=== PATIENT | female | born 1970 | race Caucasian/White ===

== ENCOUNTER 2018-07-29 19:51 | Inpatient (IN) ==
--- NOTE | 2018-07-29 20:12 | Emergency Department Note ---
Disposition Clinical Impression: STEMI (ST elevation myocardial infarction) Disposition: Admitted As Inpatient Condition: Good General Adult HPI - General Chief complaint: ED Chest Pain Stated complaint: Chest pain Time Seen by Provider: 07/29/18 19:58 Source: patient, EMS Limitations: no limitations Nursing Notes Reviewed: Yes Vital Signs Reviewed: Yes - History of Present Illness HPI Narrative: Patient is a 48-year-old female with past medical history including diabetes mellitus type 2, presenting with chest pain that started at 1830 this evening while the patient was cooking dinner. Patient describes the pain as substernal and pressure-like that radiated into her left shoulder. She complains of associated shortness of breath and her noted she was clammy. She denies lightheadedness, nausea, vomiting. She denies history of recent surgery, travel, lower extremity swelling, hormone use, history of cancer, hemoptysis. Denies fevers or chills, cough, or any other complaints at this time. Denies family history of coronary artery disease and states she has never had this happen before. She received aspirin via EMS. States chest pain is much improved in a dull feeling at this time. Pain Scale: 4 - Related Data Home Medications Medication Instructions Recorded Confirmed Metformin HCl [Fortamet] 500 mg PO DAILY 07/29/18 07/29/18 RX: Lisinopril 2.5 mg PO HS 07/29/18 07/29/18 Allergies Allergy/AdvReac Type Severity Reaction Status Date / Time Sulfa (Sulfonamide Allergy Hives Verified 07/29/18 21:28 Antibiotics) All systems ED: reviewed and negative except as stated. Review of Systems: As Per HPI Constitutional: Denies: fever, chills ENT ED: Denies: throat pain, congestion Cardiovascular: Reports: chest pain. Denies: palpitations Respiratory: Reports: dyspnea. Denies: cough, wheezes Gastrointestinal: Denies: abdominal pain, nausea, vomiting Genitourinary: Denies: dysuria Musculoskeletal: Denies: back pain Neurological: Denies: headache, weakness Past Medical History - Past Medical History Attestation: Yes The following information was validated with the patient. Source: patient Medical history: Reports: diabetes, hyperlipidemia, hypertension Psychiatric history: Reports: no psych history - Social History Smoking Status: Former smoker Smokeless Tobacco Status: No Alcohol use: Reports: rarely Drug use: Reports: none Physical Exam - General Limitations: no limitations General appearance: alert, in no apparent distress - Head Head exam: atraumatic, normocephalic, normal inspection - Eye Eye exam: Present: normal appearance, EOMI - ENT ENT exam: normal exam, mucous membranes moist - Neck Neck exam: Present: normal inspection, full ROM, trachea midline - Chest Chest inspection: Present: normal inspection, symmetric chest wall rise - Respiratory Respiratory exam: Present: normal lung sounds bilaterally. Absent: respiratory distress, wheezes - Cardiovascular Cardiovascular exam: Present: regular rate, normal rhythm, normal heart sounds. Absent: systolic murmur, diastolic murmur - Abdominal Exam Abdominal exam: Present: soft, Non-Tender. Absent: distention - Extremities Exam Extremities exam: Present: normal inspection. Absent: tenderness, pedal edema, calf tenderness - Neurological Exam Neurological exam: Present: alert, oriented X3 - Psychiatric Psychiatric exam: Present: normal affect, normal mood - Skin Skin exam: Present: warm, dry, intact, normal color. Absent: cyanosis, diaphoresis Course Vital Signs Temperature 98 F 07/29/18 19:54 Pulse Rate 102 07/29/18 19:54 Respiratory Rate 16 07/29/18 19:54 Blood Pressure 149/89 07/29/18 19:54 O2 Sat by Pulse Oximetry 98 07/29/18 19:54 Temperature 98.3 F 07/30/18 01:09 Pulse Rate 81 07/30/18 02:32 Respiratory Rate 16 07/30/18 02:32 Blood Pressure 116/82 07/30/18 02:32 O2 Sat by Pulse Oximetry 97 07/30/18 02:32 Oxygen Delivery Oxygen Delivery Room Air Medical Decision Making - [facility] Narrative Medical decision making narrative: Dr. Reid note: Patient presents to ER bed 14. I was aware of her presenting complaint and after a short while in the ER went to see the patient. She reports chest pain while working in the kitchen without any prodromal symptoms in the last hours or days. Describes pain as parasternal an going to her shoulders and breaking out in a sweat. Over the first half an hour pain much improved. Patient describes her pain, on my evaluation, as a 1 or 2 out of 10 and much improved from onset. On patient's arrival I reviewed her initial ER EKG which was recorded to be performed at 8:12 PM. This EKG was not indicative of a diffuse acute injury pattern, I did note subtle abnormalities in leads II, III, and F aVF that on this EKG did not meet criteria for an ST elevation CT, but did get our attention and concern. Additionally there were no changes in the precordial leads nor whether any reciprocal changes. While in the room I looked down on a table and saw a 12-lead EKG had been transmitted by the medic. I was not aware of this ekg being done, or being present in the ER. I picked this EKG off the table at approximately 9:20 pm and noticed this EKG to be different and more concerning than our EKG done in the ER. EKG from the medics showed J-point changes in leads II, III, and F aVF. Initially showed J-point changes diffusely in the precordial leads specifically V3 through V6. In light of the patient's history and diffuse J-p oint changes and mild diffuse ST elevation I called the senior wind energy consultant and activated the STEMI protocol. I spoke with Dr. Stauffer at this time who felt because of the initial EKG and patient still having pain catheter lab was indicated. Elevated troponin noted. Patient's symptoms continue to improve. ER ekg #2 shows almost complete normalization of all leads. 3 ekgs in all, all 3 not alike. Brilinta and Heparin Given at the Request of Dr. Stauffer; patient was shortly after transferred to the catheterization lab in stable and improved condition without persistent pain. - Medical Records Medical records reviewed: Yes I reviewed the patient's medical records. - Lab Data Lab results reviewed: Yes I reviewed the patient's lab results. Result diagrams: 07/29/18 20:49 07/29/18 20:49 Lab Results 07/29/18 07/29/18 07/29/18 Range/Units 20:49 20:49 21:47 WBC 11.8 H (4.3-11.1) K/mcL RBC 3.92 (3.82-4.97) M/mcL Hgb 11.8 (11.5-15.4) g/dL Hct 35.2 L (35.3-44.9) % MCV 89.8 (83.0-100.0) fL MCH 30.1 (28.0-33.3) pg MCHC 33.5 (31.6-35.5) g/dL RDW 12.3 (11.5-14.5) % Plt Count 353 (140-400) K/mcL MPV 8.5 L (9.4-12.4) fL PT 11.0 (9.4-12.1) Seconds INR 1.0 Heparin Anti-Xa, Unfract 1.41 H* (0.30-0.70) IU/mL Sodium 134 L (136-145) mEq/L Potassium 3.7 (3.5-5.1) mEq/L Chloride 103 (98-107) mEq/L Carbon Dioxide 20 L (23-29) mEq/L BUN 10 (6-20) mg/dL Creatinine 0.48 L (0.60-1.20) mg/dL Est GFR ( Amer) > 60 (> 60) Est GFR (Non-Af Amer) > 60 (> 60) BUN/Creatinine Ratio 21 (6-26) Glucose 180 H (70-105) mg/dL Calculated Osmolality 282 (280-300) Calcium 9.0 (8.6-10.3) mg/dL Troponin I 0.64 H* (< 0.04) ng/mL - Radiology Data Radiology results reviewed: Yes I reviewed the patient's radiology results. Chest X-Ray 07/29/18 20:06 IMPRESSION: No acute disease. D/ / Adriana Corley Cha, MD / Adriana Corley Cha, MD Interpreting Provider: Adriana Corley Cha, MD - EKG Data EKG #1 EKG attestation: Yes I reviewed and interpreted this EKG. EKG results narrative: EKG obtained at 2011 shows sinus rhythm with heart rate 96, MA interval 156, QRS duration 92, QTC [address] changes in lead 2, 3, aVF. Unknown if new or old. No reciprocal changes noted. No diffuse injury pattern noted. Critical Care Time Critical Care Time: Yes Total Critical Care Time: 35 Attestation: ACUTE STEMI CT; Attestation Statement - Attestation Attestation: Dr. Reid note: Patient seen in conjunction with ER resident Dr. Moreno; please see her charting for complete documentation. I spent [id number] time with the patient and agree with the patient's treatment and disposition. Troponin results, and all b lood work has been reviewed. Heart Score - Score History: Slightly Suspicious EKG: Non Specific repolarisation Disturbance Age: 45-65 Risk Factors: 1-2 risk factors Troponin: Less than normal limit HEART Score Total: 3
[2018-07-29 21:04] LABS: Hematocrit 35.2 % (35.3-44.9); Hemoglobin 11.8 g/dL (11.5-15.4); Mean Corpuscular HGB Conc 33.5 g/dL (31.6-35.5); Mean Corpuscular Hemoglobin 30.1 pg (28.0-33.3); Mean Corpuscular Volume 89.8 fL (83.0-100.0); Mean Platelet Volume 8.5 fL (9.4-12.4); Platelet Count 353 K/mcL (140-400); Red Blood Count 3.92 M/mcL (3.82-4.97); Red Cell Distribution Width 12.3 % (11.5-14.5)
[2018-07-29] MEDS ORDERED: *HR* Ticagrelor 90 MG TABLET PO ONE (21:28)
[2018-07-29] MEDS ORDERED: *HR* Heparin 5,000 UNIT/ML VIAL IVP ONE (21:29)
[2018-07-29] MEDS ORDERED: *HR* Heparin 5,000 UNIT/ML VIAL IVP PRN ×2 (21:29)
[2018-07-29] MEDS ORDERED: Heparin 25,000 UNIT/250 ML D5W 25,000 UNIT/250 ML IV.SOLN IVC SCH (21:30)
[2018-07-29 21:32] LABS: Troponin I 0.64 ng/mL (< 0.04)
[2018-07-29] MEDS ORDERED: 0.9 % Sodium Chloride 1,000 ML ONE (21:43)
[2018-07-29] MEDS ORDERED: ISOVUE-370 200 ML INFUS..BTL ONE (21:43)
[2018-07-29] MEDS ORDERED: Nitroglycerin 1,000 MCG/10 ML VIAL IV ONE (21:43)
[2018-07-29] MEDS ORDERED: Heparin 1,000 UNITS/500 mL 500 ML ONE (21:43)
[2018-07-29] MEDS ORDERED: *HR* Heparin 10,000 UNIT/10 ML VIAL ONE (21:43)
[2018-07-29] MEDS ORDERED: Verapamil 5 MG/2 ML VIAL ONE (21:50)
[2018-07-29 22:02] LABS: BUN/Creatinine Ratio 21 (6-26); Blood Urea Nitrogen 10 mg/dL (6-20); Carbon Dioxide 20 mEq/L (23-29); Chloride 103 mEq/L (98-107); Glucose 180 mg/dL (70-105); Osmolality,Calculated 282 (280-300); Potassium 3.7 mEq/L (3.5-5.1); Sodium 134 mEq/L (136-145); eGFR For Non-African Americans > 60 (> 60)
--- NOTE | 2018-07-29 22:07 | Pre-Sedation Evaluation ---
Pre-sedation evaluation - Pre-sedation checklist Date of procedure: 07/29/18 Procedure: [facility] Recent Vitals: Last Vital Signs Temp 98 F 07/29/18 19:54 Pulse 106 07/29/18 22:05 Resp 16 07/29/18 22:05 BP 158/93 07/29/18 22:05 Pulse Ox 99 07/29/18 22:05 H&P (including ROS) documented in medical record: Yes Previous reaction to sedatives/anesthetics: No Dietary Status: NPO after Midnight Airway Assessment: Patient can open mouth completely, TMJ function normal ASA Classification *see protocol: CLASS IV-Severe systemic disease/constant threat to pt's life, [id number] to any of the above to indicate emergent Plan of Care: Pt appropriate candidate for procedure/moderate/conscious sedati on, Risks/benefits of procedure/sedation discussed w/ patient/family Cardiac Registry (Cardio Only) - Functional Capacity Functional Capacity: >=4 METS with symptoms - Clincal Frailty Scale Clinical Frailty Scale: Managing Well
--- NOTE | 2018-07-29 22:09 | Cardiology History & Physical ---
Date of Encounter: 07/29/18 Time of Encounter: 10:05 Assessment and Plan (1) ST elevation myocardial infarction (STEMI) of inferior wall Current Visit: Yes Status: Acute A/R/B of emergent C dw patient including 1% chance of RI//CVA/CABG/HEATHER/bleeding. Pt aware and agreeable with plan. Ef assessment will be completed. Aspirin, brilinta, and heparin given. The assessment and plan as outlined above was discussed with the patient and/or family members who expressed understanding and agreement. All questions were answered. (2) Diabetes Current Visit: Yes Status: Acute The assessment and plan as outlined above was discussed with the patient and/or family members who expressed understanding and agreement. All questions were answered. Qualifiers: Diabetes mellitus type: type 2 Diabetes mellitus intermodal customer service insulin use: without intermodal customer service use Diabetes mellitus complication status: without complication Qualified Code(s): E11.9 - Type 2 diabetes mellitus without complications History of Present Illness Chief complaint: chest pain HPI: Ms. Mccord is a 48 year old female with diabetes, no previous cardiac history presents with severe chest pressure while cooking that improved with medical therapy to mild pain in the ED. EKG shows concern for inferior current of injury and STEMI was activated. Past Med Surg Social Fam HX - Past Medical History Medical history: diabetes, hyperlipidemia, hypertension Psychiatric history: no psych history - Past Surgical History Additional surgical history: tubal breast reduction\ - Social History Smoking Status: Former smoker Smokeless Tobacco Status: No Alcohol use: rarely Drug use: none Medications and Allergies Lisinopril 2.5 mg PO HS 07/29/18 [History] Metformin HCl [Fortamet] 500 mg PO DAILY 07/29/18 [History] Allergy/AdvReac Type Severity Reaction Status Date / Time Sulfa (Sulfonamide Allergy Hives Verified 07/29/18 21:28 Antibiotics) All Systems Review: The remainder of the systems were reviewed and are negative - Constitutional Constitutional: no chills, no fever(s) - EENT Eyes: no blurred vision, no loss of vision Nose, mouth and throat: no odynophagia, no throat swelling - Cardiovascular Cardiovascular: chest pain at rest - Respiratory Respiratory: no hemoptysis, no wheezing - Gastrointestinal Gastrointestinal: no hematemesis, no hematochezia - Genitourinary Genitourinary: no hematuria, no nocturia - Musculoskeletal Musculoskeletal: no muscle cramps, no muscle weakness - Integumentary Integumentary: no rash, no unusual bruising - Neurological Neurological: no syncope, no tingling - Psychiatric Psychiatric: no hallucinations, no panic attacks - Hematological/Lymphatic Hematologic/Lymphatic: no easy bleeding, no easy bruising Physical Examination Vital Signs, Last 4 Hours Temp Pulse Resp BP Pulse Ox 07/29/18 22:05 106 16 158/93 99 07/29/18 21:44 117 162/95 98 07/29/18 21:27 103 159/98 98 07/29/18 20:25 104 16 148/83 97 07/29/18 19:54 98 F 102 16 149/89 98 General: Conversant HEENT: Atraumatic Neck: No JVD Cardiac: Reg Rate and Rhythm Lungs: Normal Breath Sounds Neuro: Alert and responsive Abdomen: Soft Skin: No rashes noted on visualized skin Musculoskeletal: No Chest Wall Tenderness Extremities: No Edema Results 07/29/18 20:49 07/29/18 20:49 Lab Results 07/29/18 07/29/18 20:49 20:49 WBC 11.8 H Hgb 11.8 Hct 35.2 L Plt Count 353 Sodium 134 L Potassium 3.7 Chloride 103 Carbon Dioxide 20 L BUN 10 Creatinine 0.48 L Glucose 180 H Calcium 9.0 Troponin I 0.64 H* - EKG Interpretation EKG results cardiology: personally reviewed, sinus rhythm (borderline inferior current of injury)
[2018-07-29] MEDS ORDERED: *HR* FentaNYL (PF) 100 MCG/2 ML VIAL ONE (22:26)
[2018-07-29] MEDS ORDERED: *HR* Midazolam HCl 2 MG/2 ML VIAL ONE (22:26)
[2018-07-29 22:32] LABS: Heparin anti-factor XA UFH 1.41 IU/mL (0.30-0.70)
[2018-07-29] MEDS ORDERED: D5% in Water 1,000 ML IVC PRN (22:44)
[2018-07-29] MEDS ORDERED: *HR* Dextrose 50 % in Water (Syg) 50 ML SYRINGE IVP PRN (22:44)
[2018-07-29] MEDS ORDERED: Dextrose Gel 15 GM/37.5 ML TUBE PO PRN ×2 (22:44)
[2018-07-29] MEDS ORDERED: *HR* HYDROcodone/Acet 5/325 mg TABLET PO PRN (22:45)
[2018-07-29] MEDS ORDERED: Acetaminophen 325 MG TABLET PO PRN (22:45)
--- NOTE | 2018-07-29 23:04 | Invasive Diagnostic Lab Proc ---
Name: Stephania Mccord Date of Study: 07/29/2018 Date: 1970 Ht: 66.1in Medical Record#: [id number] Age: 48 Wt: 169.76lb Gender: Female BSA: 1.87 Order #: [id number] BMI: 27.28 Physicians Procedure Physician: Cristobal Stauffer MD, [facility] Referring MD: Referring MD: Staff Name Position Time In RivkadeanMilagros RN Monitor 10:19 PM Bliane Noel RN Fence Erector Supervisor 10:19 PM Mona Underwood RN Fence Erector Supervisor 10:19 PM Stefan Lopez RT (R) Scrub 10:19 PM Indications Indication STEMI Procedures Performed Procedure L HRT ARTERY/VENTRICLE ANGIO Pre-Procedure Checklist Informed consent is complete signed and on chart. H&P is on chart. ID band is on and ID verified with patient. Patient NPO for procedure The procedure was described for the patient and questions were answered. Blood Pressure: 159/98 ECG is on chart. Plan of Care Patient will tolerate the procedure without complications. Adequate level of comfort will be maintained. Hemodynamics will remain stable Patient will recover from procedure without complications. Respiratory function will be maintained. Cardiac rhythm will remain stable. Patient temperature will be maintained. Patient and/or family have verbalized understanding of the procedure. Patient Education Intravenous Access Time IV Size Location DC'd Fluid/Drip Rate Units RN 10:07 PM 20g 1 1/4" Patent On Arrival Rt Arm 10:08 PM 20g 1 1/4" Patent On Arrival Rt Arm Allergies Sulfa (Sulfonamide Antibiotics) Vital Signs Time BP (mmHg) HR (bpm) O2 Sat. RR (bpm) LOC 10:08 PM 159 / 98 103 98 % 16 5 = Fully awake and oriented or at pre-proc level 10:23 PM / % 5 = Fully awake and oriented or at pre-proc level 10:23 PM / % 4 = Oriented but drowsy 10:25 PM 141 / 103 118 99 % 20 10:30 PM 139 / 88 131 94 % 17 10:35 PM 129 / 84 118 94 % 25 10:40 PM 125 / 81 118 94 % 28 Procedural Medications Time Medication Dose Units Method Given By 10:22 PM Oxygen 2 L/min nasal cannula Blaine Noel RN 10:27 PM Versed 2 mg Intravenous Blaine Noel RN 10:27 PM Fentanyl 50 mcg Intravenous Blaine Noel RN 10:27 PM Lidocaine 2% 0.5 ml Subcutaneous Cristobal Stauffer MD, [facility] 10:29 PM Heparin 2000 units Nitroglycerin 200 mcg Verapamil 2.5 mg Intraarterial Cristobal Stauffer MD, [facility] ASA Classification: CLASS IV- Severe systemic that is constant threat to patient's life Myles Score Preprocedure Postprocedure Activity 2- Moves 4 extremities sustained head lift Activity 2- Moves 4 extremities sustained head lift Circulation 2- SBP +/= 20 points of pre-anesthetic level Circulation 2- SBP +/= 20 points of pre-anesthetic level Consciousness 2- Awake and alert oriented x 3 Consciousness 2- Awake and alert oriented x 3 O2 Saturation 2- Able to maintain O2 satruation of 92% on room air O2 Saturation 2- Able to maintain O2 satruation of 92% on room air Respiratory 2- Able to deep breathe and cough well Respiratory 2- Able to deep breathe and cough well Total Score 10 Total Score 10 Contrast Agent: Isovue Diagnostic Contrast: 68 ml Total Contrast: 68 ml Fluoro Dose: 16 mGy Procedure Log Time Note Enter By 10:19 PM [facility] PM Milagros Holloway RN Position: Monitor Time in: 22:19 tsmmers 10:19 PM Blaine Noel RN Position: Fence Erector Supervisor Time in: 22:19 [facility] 10:19 PM Mona Underwood RN Position: Fence Erector Supervisor Time in: 22:19 tsmmers 10:19 PM Stefan Lopez (R) Position: Scrub [facility]: [facility] PM Patient charges- Angio tray pack, Navilyst 3mm J, Pulse Oximetry and ACIST tubing and transducer tsoummers 10:22 PM ASA Class CLASS IV- Severe systemic that is constant threat to patient's life tsoummers 10:22 PM Meet and greet [facility] PM Sign in performed according to hospital policy. Informed consent was obtained. tsoummers 10:22 PM Procedure start 22:22 tsoummers 10:22 PM Hair removed from procedure site in procedure lab using clippers. Right wrist and Right groin prepped with Chloraprep by Stefan Lopez (R), then patient was draped. Skin intact. tsmmers 10: PM Time: : Oxygen on at 2 L/min per nasal cannula by Blaine Noel RN [facility] : PM Time: : Patient comfortable and pain free: Yes tsoummers 10: PM Time: :LOC: 5 = Fully awake and oriented or at pre-proc level tsoummers 10: PM Critical cardiac patient with acute WA was brought emergently to the cardiac technical laboratory asst for immediate coronary angiography and intervention if clinically indicated. tsoummers 10: PM CathStat 10: PM Vitals capture started with the following parameters, Patient=Adult, Interval=5 min, Initial Wgkglism=661 mmHg, Deflation Rate=5 mmHg, Cuff placed on Right Arm 10: PM Time out was performed according to hospital policy. Conscious sedation and anesthesia was achieved (see medication log with in this report above) tsoummers 10: PM AP=866 bpm, KSQQ=030/103 mmhg, SpO2=99.0 %, Resp=20 B/min 10: PM Time: : Versed 2 mg Intravenous Given by Blaine Noel RN [facility] 10: PM Time: : Fentanyl 50 mcg Intravenous [facility]: PM Time: : 0.5 ml Lidocaine 2% to right radial Subcutaneous Given by Cristobal Stauffer MD, [facility] 10: PM Recorded ECG: JG=673 Condition=Condition 1 10:28 PM Pressure channel 1 zero failed. 10:28 PM Pressure channel 1 zero failed. 10:28 PM Pressure channel 1 zeroed. 10: PM Access obtained by percutaneous puncture. 6Fr 10cm Terumo Glidesheath sheath placed in right Radial artery. [id number] tsoummers 10: PM Time: :29 Patient given 2,000 units Heparin, 200 mcg Nitroglycerin, and 2.5 mg Verapamil Intraarterial by Cristobal Stauffer MD, [facility]. This is given to reduce risk of vessel spasm and thrombosis. tsoummers 10:29 PM 0.035 260cm Navilyst 3mmJ wire [id number] tsmmers 10:29 PM 5Fr TIG catheter inserted over the wire [facility] tsmmers 10: PM wire removed tsoummers 10:30 PM EK=387 bpm, ARIM=946/88 mmhg, SpO2=94.0 %, Resp=17 B/min, EtCO2=27 mmHg 10:31 PM Recorded Pressure: Ao, HD=718, Condition=Condition 1 (Aorta) Ao 114/87/100 10:31 PM Coronary Dominance: right tsoummers 10:33 PM Recorded Pressure: LV, ME=323, Condition=Condition 1 (Left Ventricle) LV 133/-5/10 10:34 PM Catheter crossed the aortic valve and was selectively placed in the left ventricle. Pressures recorded on pullback for left heart catheterization. tsoummers 10:34 PM Bolus angiogram of left Ventricle complete: 10 ml/sec for a total of 30 mls tsoummers 10:34 PM Recorded Pressure: LV, DQ=730, Condition=Condition 1 (Left Ventricle) LV 139/-5/-2 10:34 PM Recorded Pressure: LV, Ao, QE=516, Condition=Condition 1 (Left Ventricle) LV 143/-6/1, (Aorta) Ao 82/52/68 10:35 PM Catheter removed tsmmers 10:35 PM XY=955 bpm, MPPF=991/84 mmhg, SpO2=94.0 %, Resp=25 B/min, EtCO2=30 mmHg 10:36 PM 5Fr RBL 3.5 Convey guide catheter was used to cannulate the PCI vessel successfully. reused? No tsoummers 10:37 PM LCA angiography performed in multiple views. tsoummers 10:37 PM Recorded Pressure: Ao, NE=463, Condition=Condition 1 (Aorta) Ao 112/77/94 10:38 PM Time: 22:23 Patient comfortable and pain free: Yes tsoummers 10:38 PM Time: 22:23LOC: 4 = Oriented but drowsy tsoummers 10:39 PM Lesion found in Mid LAD. Pre Stenosis: 40 Pre WALTER Flow: tsoummers 10:39 PM Guide catheter removed intact. tsoummers 10:40 PM Procedure completed at 22:40 07/29/2018 tsmmers 10:40 PM Did you address WALTER flow and Dominance? Yes tsoummers 10:40 PM ID=545 bpm, PJMI=187/81 mmhg, SpO2=94.0 %, Resp=28 B/min 10:44 PM Sign out completed: Radiation Dose 120.84 mGy, 16.1 Gy/cm2 Fluoro Time: 3.6 Isovue 370 - 200ml contrast 68 ml given by Cristobal Stauffer MD, [facility]. Complications: None. The patient was discharged out of the technical laboratory asst in stable condition. Sedation minutes 16. Cardiac Rehab Consult needed: No. Confirmed administered medications: Yes tsoummers 10:44 PM Isovue 370 - 200ml,1 Bottle(s) used. tsoummers 10:44 PM Arterial sheath pulled, Vasc Band closure device used and was Successful 11 S/N. tsoummers 10:44 PM 11 ml air in Vasc Band. tsoummers 10:44 PM Post ECG NSR tsoummers 10:44 PM Post Blood Pressure 125/81 tsoummers 10:44 PM 22:44 Post Pulses Rt Radial 1+ tsoummers 10:44 PM Information taught Cardiac Cath and Vasc Band tsoummers 10:44 PM Education needs Plan of Care, Procedure, and Responsibilities of Patient in Care tsoummers 10:44 PM Learning barriers :None tsoummers 10:44 PM Education Methods Verbal tsoummers 10:44 PM Education evaluation Able to repeat information tsoummers 10:45 PM Site status No bleeding/hematoma - Rt Wrist as reported by Stefan Lopez RT (R) at 22:44 tsoummers 10:45 PM Plavix, Effient or Brilinta given Yes ELECTRICAL TIMING DEVICE CALIBRATOR tsoummers 10:45 PM Delay to floor Bed availability tsoummers 10:45 PM Family placed in consult room. tsoummers 10:49 PM Mid/Distal Left Anterior Descending Coronary Artery and diagonal branches with 40% stenosis. If graft is supplying this area, 0 % stenosis tsoummers 10:51 PM Report given to Tigist KRAUS Pt taken to 2NE Room #27. 22:51 tsoummers 10:51 PM Patient out of room: 22:51 tsoummers Complications Complication None Hemodynamics Pressures Site Systolic/A Wave Diastolic/V Wave Mean AO 114 87 100 LV 133 -5 10 LV 139 -5 -2 LV 143 -6 1 AO 82 52 68 AO 112 77 94 Post Procedure Information Blood Pressure: 125/81 mmHg Rhythm: NSR Post procedural instructions were given Closure Device Time Device Success/Fail 07/29/2018 10:46:00 PM Mechanical Compression Successful Site Checks Time Location Status Staff Sheath In? Note 10:44 PM Rt Wrist No bleeding/hematoma Stefan Lopez RT (R) Pulses Time Site Pre-Procedure Post-Procedure Note 10:44:00 PM Rt Radial 1+ Updated by Milagros Holloway RN on 07/29/2018 10:52:13 PM electronically signed on 07/29/2018 10:53:48 PM with status of Final
[2018-07-30] MEDS: *HR* Enoxaparin 40 MG/0.4 ML SYRINGE SQ SCH (05:29)
[2018-07-30 06:06] LABS: Basophils % 0.4 %; Eosinophils # 0.1 K/mcL (0.0-0.6); Eosinophils % 1.3 %; Hematocrit 35.3 % (35.3-44.9); Hemoglobin 11.8 g/dL (11.5-15.4); Immature Granulocytes % 0.3 % (0-4); Lymphocytes # 2.2 K/mcL (0.6-4.6); Lymphocytes % 19.8 %; Mean Corpuscular HGB Conc 33.4 g/dL (31.6-35.5); Mean Corpuscular Hemoglobin 29.7 pg (28.0-33.3); Mean Corpuscular Volume 88.9 fL (83.0-100.0); Mean Platelet Volume 8.7 fL (9.4-12.4); Monocytes # 0.5 K/mcL (0.0-1.3); Monocytes % 4.8 %; Platelet Count 359 K/mcL (140-400); Red Blood Count 3.97 M/mcL (3.82-4.97); Red Cell Distribution Width 12.3 % (11.5-14.5); Segmented Neutrophils % 73.4 %
[2018-07-30 06:21] LABS: BUN/Creatinine Ratio 18 (6-26); Blood Urea Nitrogen 7 mg/dL (6-20); Carbon Dioxide 21 mEq/L (23-29); Chloride 103 mEq/L (98-107); Glucose 197 mg/dL (70-105); Osmolality,Calculated 285 (280-300); Potassium 3.9 mEq/L (3.5-5.1); Sodium 136 mEq/L (136-145); eGFR For Non-African Americans > 60 (> 60)
[2018-07-30] MEDS: Aspirin 81 MG TAB.CHEW PO SCH (07:50)
[2018-07-30] MEDS: Insulin LISPRO 300 UNITS/3 ML VIAL SQ SCH ×3 (07:54→18:24)
--- NOTE | 2018-07-30 08:18 | Invasive Diagnostic Lab Proc ---
Name: Stephania Mccord Date of Study: 07/29/2018 Date: 1970 Ht: 66.1in Medical Record#: [id number] Age: 48 Wt: 169.76lb Gender: Female BSA: 1.87 Order #: [id number] BMI: 27.28 Physicians Procedure Physician: Cristobal Stauffer MD, [facility] Referring MD: Referring MD: Staff Name Position Time In RivkadeanMilagros RN Monitor 10:19 PM Blaine Noel RN Industrial Psychology Professor 10:19 PM Mona Underwood RN Industrial Psychology Professor 10:19 PM Stefan Lopez RT (R) Scrub 10:19 PM Indications Indication STEMI Procedures Performed Procedure L HRT ARTERY/VENTRICLE ANGIO Pre-Procedure Checklist Informed consent is complete signed and on chart. H&P is on chart. ID band is on and ID verified with patient. Patient NPO for procedure The procedure was described for the patient and questions were answered. Blood Pressure: 159/98 ECG is on chart. Plan of Care Patient will tolerate the procedure without complications. Adequate level of comfort will be maintained. Hemodynamics will remain stable Patient will recover from procedure without complications. Respiratory function will be maintained. Cardiac rhythm will remain stable. Patient temperature will be maintained. Patient and/or family have verbalized understanding of the procedure. Patient Education Intravenous Access Time IV Size Location DC'd Fluid/Drip Rate Units RN 10:07 PM 20g 1 1/4" Patent On Arrival Rt Arm 10:08 PM 20g 1 1/4" Patent On Arrival Rt Arm Allergies Sulfa (Sulfonamide Antibiotics) Vital Signs Time BP (mmHg) HR (bpm) O2 Sat. RR (bpm) LOC 10:08 PM 159 / 98 103 98 % 16 5 = Fully awake and oriented or at pre-proc level 10:23 PM / % 5 = Fully awake and oriented or at pre-proc level 10:23 PM / % 4 = Oriented but drowsy 10:25 PM 141 / 103 118 99 % 20 10:30 PM 139 / 88 131 94 % 17 10:35 PM 129 / 84 118 94 % 25 10:40 PM 125 / 81 118 94 % 28 Procedural Medications Time Medication Dose Units Method Given By 10:22 PM Oxygen 2 L/min nasal cannula Blaine Noel RN 10:27 PM Versed 2 mg Intravenous Blaine Noel RN 10:27 PM Fentanyl 50 mcg Intravenous Blaine Noel RN 10:27 PM Lidocaine 2% 0.5 ml Subcutaneous Cristobal Stauffer MD, [facility] 10:29 PM Heparin 2000 units Nitroglycerin 200 mcg Verapamil 2.5 mg Intraarterial Cristobal Stauffer MD, [facility] ASA Classification: CLASS IV- Severe systemic that is constant threat to patient's life Myles Score Preprocedure Postprocedure Activity 2- Moves 4 extremities sustained head lift Activity 2- Moves 4 extremities sustained head lift Circulation 2- SBP +/= 20 points of pre-anesthetic level Circulation 2- SBP +/= 20 points of pre-anesthetic level Consciousness 2- Awake and alert oriented x 3 Consciousness 2- Awake and alert oriented x 3 O2 Saturation 2- Able to maintain O2 satruation of 92% on room air O2 Saturation 2- Able to maintain O2 satruation of 92% on room air Respiratory 2- Able to deep breathe and cough well Respiratory 2- Able to deep breathe and cough well Total Score 10 Total Score 10 Contrast Agent: Isovue Diagnostic Contrast: 68 ml Total Contrast: 68 ml Fluoro Dose: 16 mGy Procedure Log Time Note Enter By 10:19 PM 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 to 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 lab instructor 2 [facility] 10:19 PM Milagros Holloway RN Position: Monitor Time in: 22:19 tsmmers 10:19 PM Blaine Noel RN Position: Industrial Psychology Professor Time in: 22:19 [facility] 10:19 PM Mona Underwood RN Position: Industrial Psychology Professor Time in: 22:19 [facility]ers 10:19 PM Stefan Lopez (R) Position: Scrub [facility]: [facility] PM Patient charges- Angio tray pack, Navilyst 3mm J, Pulse Oximetry and ACIST tubing and transducer tsoummers 10:22 PM ASA Class CLASS IV- Severe systemic that is constant threat to patient's life tsoummers 10:22 PM Meet and greet [facility] 10:22 PM Sign in performed according to hospital policy. Informed consent was obtained. tsoummers 10:22 PM Procedure start 22:22 tsoummers 10:22 PM Hair removed from procedure site in procedure lab using clippers. Right wrist and Right groin prepped with Chloraprep by Stefan Lopez (R), then patient was draped. Skin intact. tsmmers 10: PM Time: : Oxygen on at 2 L/min per nasal cannula by Blaine Noel RN [facility] : PM Time: : Patient comfortable and pain free: Yes tsoummers 10: PM Time: :LOC: 5 = Fully awake and oriented or at pre-proc level tsoummers 10: PM Critical cardiac patient with acute IL was brought emergently to the cardiac rn labor and delivery for immediate coronary angiography and intervention if clinically indicated. tsoummers 10: PM CathStat 10: PM Vitals capture started with the following parameters, Patient=Adult, Interval=5 min, Initial Qiczmolb=978 mmHg, Deflation Rate=5 mmHg, Cuff placed on Right Arm 10: PM Time out was performed according to hospital policy. Conscious sedation and anesthesia was achieved (see medication log with in this report above) tsoummers 10: PM FP=724 bpm, WCNT=458/103 mmhg, SpO2=99.0 %, Resp=20 B/min 10: PM Time: : Versed 2 mg Intravenous Given by Blaine Noel RN [facility] 10: PM Time: : Fentanyl 50 mcg Intravenous [facility]: PM Time: : 0.5 ml Lidocaine 2% to right radial Subcutaneous Given by Cristobal Stauffer MD, [facility] 10: PM Recorded ECG: WC=501 Condition=Condition 1 10:28 PM Pressure channel 1 zero failed. 10:28 PM Pressure channel 1 zero failed. 10:28 PM Pressure channel 1 zeroed. 10: PM Access obtained by percutaneous puncture. 6Fr 10cm Terumo Glidesheath sheath placed in right Radial artery. [id number] tsoummers 10: PM Time: :29 Patient given 2,000 units Heparin, 200 mcg Nitroglycerin, and 2.5 mg Verapamil Intraarterial by Cristobal Stauffer MD, [facility]. This is given to reduce risk of vessel spasm and thrombosis. tsoummers 10:29 PM 0.035 260cm Navilyst 3mmJ wire [id number] tsmmers 10:29 PM 5Fr TIG catheter inserted over the wire [facility] tsmmers 10: PM wire removed tsoummers 10:30 PM SP=009 bpm, EKPS=077/88 mmhg, SpO2=94.0 %, Resp=17 B/min, EtCO2=27 mmHg 10:31 PM Recorded Pressure: Ao, NT=989, Condition=Condition 1 (Aorta) Ao 114/87/100 10:31 PM RCA angiography performed in multiple views. tsoummers 10:31 PM Coronary Dominance: right tsoummers 10:33 PM Recorded Pressure: LV, OB=408, Condition=Condition 1 (Left Ventricle) LV 133/-5/10 10:34 PM Catheter crossed the aortic valve and was selectively placed in the left ventricle. Pressures recorded on pullback for left heart catheterization. tsoummers 10:34 PM Bolus angiogram of left Ventricle complete: 10 ml/sec for a total of 30 mls tsoummers 10:34 PM Recorded Pressure: LV, NC=307, Condition=Condition 1 (Left Ventricle) LV 139/-5/-2 10:34 PM Recorded Pressure: LV, Ao, RU=506, Condition=Condition 1 (Left Ventricle) LV 143/-6/1, (Aorta) Ao 82/52/68 10:35 PM Catheter removed tsoummers 10:35 PM VK=397 bpm, AXRJ=157/84 mmhg, SpO2=94.0 %, Resp=25 B/min, EtCO2=30 mmHg 10:36 PM 5Fr RBL 3.5 Convey guide catheter was used to cannulate the PCI vessel successfully. reused? No tsoummers 10:37 PM LCA angiography performed in multiple views. tsoummers 10:37 PM Recorded Pressure: Ao, OK=855, Condition=Condition 1 (Aorta) Ao 112/77/94 10:38 PM Time: 22:23 Patient comfortable and pain free: Yes tsoummers 10:38 PM Time: 22:23LOC: 4 = Oriented but drowsy tsoummers 10:39 PM Lesion found in Mid LAD. Pre Stenosis: 40 Pre WALTER Flow: tsoummers 10:39 PM Guide catheter removed intact. tsoummers 10:40 PM Procedure completed at 22:40 07/29/2018 tsmmers 10:40 PM Did you address WALTER flow and Dominance? Yes tsoummers 10:40 PM HT=125 bpm, DVCR=277/81 mmhg, SpO2=94.0 %, Resp=28 B/min 10:44 PM Sign out completed: Radiation Dose 120.84 mGy, 16.1 Gy/cm2 Fluoro Time: 3.6 Isovue 370 - 200ml contrast 68 ml given by Cristobal Stauffer MD, [facility]. Complications: None. The patient was discharged out of the rn labor and delivery in stable condition. Sedation minutes 16. Cardiac Rehab Consult needed: No. Confirmed administered medications: Yes tsoummers 10:44 PM Isovue 370 - 200ml,1 Bottle(s) used. tsoummers 10:44 PM Arterial sheath pulled, Vasc Band closure device used and was Successful 11 S/N. tsoummers 10:44 PM 11 ml air in Vasc Band. tsoummers 10:44 PM Post ECG NSR tsoummers 10:44 PM Post Blood Pressure 125/81 tsoummers 10:44 PM 22:44 Post Pulses Rt Radial 1+ tsoummers 10:44 PM Information taught Cardiac Cath and Vasc Band tsoummers 10:44 PM Education needs Plan of Care, Procedure, and Responsibilities of Patient in Care tsoummers 10:44 PM Learning barriers :None tsoummers 10:44 PM Education Methods Verbal tsoummers 10:44 PM Education evaluation Able to repeat information tsoummers 10:45 PM Site status No bleeding/hematoma - Rt Wrist as reported by Stefan Lopez RT (R) at 22:44 tsoummers 10:45 PM Plavix, Effient or Brilinta given Yes ORIENTATION & MOBILITY SPECIALIST tsoummers 10:45 PM Delay to floor Bed availability tsoummers 10:45 PM Family placed in consult room. tsoummers 10:49 PM Mid/Distal Left Anterior Descending Coronary Artery and diagonal branches with 40% stenosis. If graft is supplying this area, 0 % stenosis tsoummers 10:51 PM Report given to Tigist KRAUS Pt taken to 2NE Room #27. 22:51 tsoummers 10:51 PM Patient out of room: 22:51 tsoummers Complications Complication None Hemodynamics Pressures Site Systolic/A Wave Diastolic/V Wave Mean AO 114 87 100 LV 133 -5 10 LV 139 -5 -2 LV 143 -6 1 AO 82 52 68 AO 112 77 94 Post Procedure Information Blood Pressure: 125/81 mmHg Rhythm: NSR Post procedural instructions were given Closure Device Time Device Success/Fail 07/29/2018 10:46:00 PM Mechanical Compression Successful Site Checks Time Location Status Staff Sheath In? Note 10:44 PM Rt Wrist No bleeding/hematoma Stfean Lopez RT (R) Pulses Time Site Pre-Procedure Post-Procedure Note 10:44:00 PM Rt Radial 1+ Updated by Milagros Holloway RN on 07/30/2018 8:06:42 AM electronically signed on 07/30/2018 8:07:02 AM with status of Final
[2018-07-30] MEDS: Ondansetron 4 MG/2 ML VIAL IVP PRN ×2 (09:13→18:24)
[2018-07-30] MEDS ORDERED: Perflutren Lipid Microsphere 1.3 ML in 0.9 % Sodium Chloride 8.7 ML IVP ONE (11:11)
--- NOTE | 2018-07-30 13:00 | Cardiology Progress Note ---
Date of Encounter: 07/30/18 Time of Encounter: 12:57 Assessment and Plan (1) NICM (nonischemic cardiomyopathy) Current Visit: Yes Status: Acute Admission ECG 07/29 concerning for STEMI. 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 LHC revealed takotsubo CMP. There is mild 1V CAD(40% mLAD). EF 40% TTE LVEF 45%. LV segmental wall motion abnormalities. Mild LVDD. There is no LV thrombus. Definity echo contrast was used. Normal RV structure and function. Mild MR. Mild TR. No phtn. Pt is euvolemic on exam. Recommend Na and fluid restriction, daily weights. Pt was started on Lopressor 25mg [id number] on admission. Transitioned to Toprol XL 50mg daily today. Continue low dose ACEi--Lisinopril 2.5mg daily. Plan to repeat TTE in 3 months to re-evaluate EF. Plan for d/c home tomorrow if remains stable. (2) ST elevation myocardial infarction (STEMI) of inferior wall Current Visit: Yes Status: Ruled-out Ruled out, as above. Troponin 0.64. Mild 1V CAD on LHC (40% mLAD). NIMP EF 45% on TTE. Right radial access site healing well. No bleeding or hematoma. Mild ecchymosis. Restrictions discussed. Continue ASA, Statin, BB. Discussed with Dr. Stauffer. Given troponin elevation, recommend DAPT (ASA and Plavix) x 1 month. Discussion w patient/family: The assessment and plan as outlined above was discussed with the patient and/or family members who expressed understanding and agreement. All questions were answered. Thank you for involving us in the care of your patient. Please call with any questions. I will discuss all the above with Dr. Gannon and make changes as necessary. Subjective Principal diagnosis: CMP Interval history: No acute complaints. Denies chest pain or dyspnea. Objective Vital Signs, Last 4 Hours Temp Pulse Resp BP 07/30/18 11:51 98.5 F 87 14 121/81 Vital Signs Temp Pulse Resp BP Pulse Ox 07/30/18 11:51 98.5 F 87 14 121/81 07/30/18 07:50 98.1 F 92 16 120/86 96 07/30/18 04:34 98.1 F 94 15 153/94 98 07/30/18 03:30 87 16 104/73 96 04/19/19 02:32 81 16 116/82 97 07/30/18 01:30 81 16 123/92 97 07/30/18 01:09 98.3 F 84 16 127/85 97 07/30/18 00:32 98.3 F 87 16 125/80 97 07/30/18 00:24 98.2 F 85 15 125/87 96 07/30/18 00:01 98.4 F 91 16 126/97 97 07/29/18 23:46 98.3 F 93 15 129/79 97 07/29/18 23:33 98.1 F 100 17 127/80 96 07/29/18 23:05 98.4 F 105 17 129/85 95 07/29/18 22:14 18 138/93 07/29/18 22:05 106 16 158/93 99 07/29/18 21:44 117 162/95 98 07/29/18 21:27 103 159/98 98 07/29/18 20:25 104 16 148/83 97 07/29/18 19:54 98 F 102 16 149/89 98 Intake and Output 07/29/18 07/30/18 07/30/18 23:59 07:59 15:59 Intake Total 0 / 0 100 / 100 240 / 240 Output Total 700 / 700 150 / 150 Balance 0 / 0 -600 / -600 90 / 90 Intake: Oral 0 / 0 100 / 100 240 / 240 Output: Urine 700 / 700 150 / 150 Other: Meal Breakfast Percent of Meal Consumed 50% Stool Size Moderate Stool Consistency formed Stool Characteristics Normal for Patient # Voids 1 # Bowel Movements 1 Weight 79.4 kg 79.4 kg Blood Glucose* 168 167 176 Patient Weight 07/30/18 23:59 Weight 79.4 kg General: Conversant, No Apparent Distress HEENT: Atraumatic, Normocephaly, Mucus Membranes Moist Neck: No JVD, Normal carotid pulses Cardiac: Reg Rate and Rhythm, Normal S1 and S2, No Murmur Lungs: Normal Breath Sounds Neuro: Alert and responsive, No focal deficits noted Abdomen: Soft, Non-Tender Skin: Other (right radial access site healing well. No bleeding or hematoma. Mild ecchymosis.) Musculoskeletal: No Chest Wall Tenderness Extremities: No Clubbing, No Cyanosis, No Edema, Normal Pulses Results 07/30/18 05:29 07/30/18 05:29 Lab Results 07/29/18 07/29/18 07/29/18 20:49 20:49 21:47 WBC 11.8 H Hgb 11.8 Hct 35.2 L Plt Count 353 INR 1.0 Sodium 134 L Potassium 3.7 Chloride 103 Carbon Dioxide 20 L BUN 10 Creatinine 0.48 L Glucose 180 H Calcium 9.0 Troponin I 0.64 H* 07/30/18 07/30/18 05:29 05:29 WBC 10.8 Hgb 11.8 Hct 35.3 Plt Count 359 INR Sodium 136 Potassium 3.9 Chloride 103 Carbon Dioxide 21 L BUN 7 Creatinine 0.40 L Glucose 197 H Calcium 9.0 Troponin I Short CBC 07/30/18 07/29/18 Range/Units 05:29 20:49 WBC 10.8 11.8 H (4.3-11.1) K/mcL Hgb 11.8 11.8 (11.5-15.4) g/dL Hct 35.3 35.2 L (35.3-44.9) % Plt Count 359 353 (140-400) K/mcL Neutrophils # 8.0 (1.6-8.9) K/mcL BMP 07/30/18 07/29/18 Range/Units 05:29 20:49 Sodium 136 134 L (136-145) mEq/L Potassium 3.9 3.7 (3.5-5.1) mEq/L Chloride 103 103 (98-107) mEq/L Carbon Dioxide 21 L 20 L (23-29) mEq/L BUN 7 10 (6-20) mg/dL Creatinine 0.40 L 0.48 L (0.60-1.20) mg/dL Glucose 197 H 180 H (70-105) mg/dL Calcium 9.0 9.0 (8.6-10.3) mg/dL Cardiac Enzymes 07/29/18 Range/Units 20:49 Troponin I 0.64 H* (< 0.04) ng/mL Impressions Chest X-Ray 07/29/18 20:06 IMPRESSION: No acute disease. D/ / Adriana Corley Cha, MD / Adriana Corley Cha, MD Interpreting Provider: Adriana Corley Cha, MD Echocardiogram 07/30/18 10:30 Impressions: LVEF 45%. LV segmental wall motion abnormalities diagrammed below. Mild left ventricular diastolic dysfunction. There is no LV thrombus. Definity echo contrast was used. Normal right ventricular structure and function. Mild mitral regurgitation. Mild tricuspid regurgitation. No pulmonary hypertension. Left Ventricular Wall Motion: Rest Echo Findings The apex, apical inferior, apical anterior, apical septal, apical lateral and mid anterior septal jimenez were hypokinetic. The mid inferior lateral wall was not visualized. All other wall segments showed normal motion. Findings: Study Quality * Technically adequate exam. ECG Findings * Normal sinus rhythm. Left Ventricle * LVEF 45%. * Mild left ventricular diastolic dysfunction. * There is no LV thrombus. * Definity echo contrast was used. Right Ventricle * Normal right ventricular structure and function. Left Atrium * Normal left atrial size. Right Atrium * Normal right atrial size. Aortic Valve * No aortic regurgitation. * Trileaflet aortic valve. * No aortic stenosis. Mitral Valve * Mild mitral regurgitation. * Normal mitral valve structure. * No mitral stenosis. Tricuspid Valve * Normal tricuspid valve structure. * Mild tricuspid regurgitation. Pulmonic Valve * Pulmonic valve is not well visualized. * No pulmonic stenosis. * No pulmonic regurgitation. Pulmonary Artery * Pulmonary artery not well visualized. Aorta * Normally sized aortic root. Pericardium * There is no pericardial effusion present. Interatrial Septum * No evidence of PFO by color Doppler. IVC * The IVC is not well evaluated. Active Medications Acetaminophen (Tylenol) 650 mg PO Q6HR PRN PRN Reason: Mild Pain Stop: 01/28/19 22:46 Hydrocodone Bitart/Acetaminophen ([place] 5-325 Mg) 1 tab PO Q4HR PRN PRN Reason: Moderate Pain Stop: 01/28/19 22:46 Last Admin: 07/30/18 07:50 Dose: 1 tab Aspirin (Aspirin) 81 mg PO DAILY STEFANIE Stop: 01/29/19 09:01 Last Admin: 07/30/18 07:50 Dose: 81 mg Atorvastatin Calcium (Lipitor) 40 mg PO HS STEFANIE Stop: 01/29/19 21:01 Dextrose/Water (Dextrose 50% (Syg)) 25 ml IVP AD PRN PRN Reason: Hypoglycemia Stop: 01/28/19 22:45 Diphenhydramine HCl (Benadryl) 25 mg PO HS PRN PRN Reason: Insomnia Stop: 01/28/19 22:46 Enoxaparin Sodium (Lovenox) 40 mg SQ 0600 STEFANIE; Protocol Stop: 01/29/19 06:01 Last Admin: 07/30/18 05:29 Dose: 40 mg Glucagon (Glucagen) 1 mg IM ONCE PRN PRN Reason: Hypoglycemia Stop: 01/28/19 22:45 Glucose (Gluctose) 15 gm PO ONCE PRN PRN Reason: Hypoglycemia Stop: 01/28/19 22:45 Glucose (Gluctose) 30 gm PO ONCE PRN PRN Reason: Hypoglycemia Stop: 01/28/19 22:45 Dextrose (Dextrose 5%) 1,000 mls @ 100 mls/hr IVC .Q10H PRN PRN Reason: HYPOGLYCEMIA Stop: 01/28/19 22:45 Insulin Human Lispro (Humalog) 0 units SQ HS STEFANIE; Protocol Stop: 01/29/19 21:01 Insulin Human Lispro (Humalog) 0 units SQ TIDAC [facility]; Protocol Stop: 01/29/19 07:31 Last Admin: 07/30/18 07:54 Dose: Not Given Lisinopril (Zestril) 2.5 mg PO DAILY [facility]; Protocol Stop: 01/29/19 10:31 Last Admin: 07/30/18 11:42 Dose: 2.5 mg Metoprolol Succinate (Toprol Xl) 50 mg PO DAILY STEFANIE Stop: 01/30/19 09:01 Ondansetron HCl (Zofran) 4 mg IVP Q8HR PRN PRN Reason: Nausea And Vomiting Stop: 01/28/19 22:13 Last Admin: 07/30/18 09:13 Dose: 4 mg - Imaging and Cardiology Echo: report reviewed Cardiac cath: report reviewed - EKG Interpretation EKG results cardiology: other (12 hr tele AVG HR 85, SR. No significant pauses or arrhythmias noted.) Consult Discharge Plan - Plan Referrals: Grover Zamorano, HOME ADVISOR [Primary Care Provider] -
[2018-07-30] MEDS ORDERED: Insulin LISPRO 300 UNITS/3 ML VIAL SQ SCH (21:00)
[2018-07-31] MEDS: *HR* Enoxaparin 40 MG/0.4 ML SYRINGE SQ SCH (05:44)
[2018-07-31 07:34] VITALS: BP 103/72
[2018-07-31] MEDS: Aspirin 81 MG TAB.CHEW PO SCH (08:01)
[2018-07-31] MEDS: Insulin LISPRO 300 UNITS/3 ML VIAL SQ SCH (08:02)
--- NOTE | 2018-07-31 08:22 | Cardiology Progress Note ---
Date of Encounter: 07/31/18 Time of Encounter: 08:45 Assessment and Plan (1) NICM (nonischemic cardiomyopathy) Current Visit: Yes Status: Acute Acceptable for discharge Admission ECG 07/29 concerning for STEMI with not quite anatomical ST elevation but with ongoing chest pain. Taken emergently to laborer [place]. LHC revealed takotsubo CMP. There is mild 1V CAD(40% mLAD). EF 40% TTE LVEF 45%. LV segmental wall motion abnormalities. Mild LVDD. There is no LV thrombus. Definity echo contrast was used. Normal RV structure and function. Mild MR. Mild TR. No phtn. Pt is euvolemic on exam. Recommend Na and fluid restriction, daily weights. Pt was started on Lopressor 25mg M5ftapk on admission. Transitioned to Toprol XL 50mg daily today. Continue low dose ACEi--Lisinopril 2.5mg daily. Plan to repeat TTE in 3 months to re-evaluate EF. Plan for d/c home tomorrow if remains stable. (2) ST elevation myocardial infarction (STEMI) of inferior wall Current Visit: Yes Status: Ruled-out Ruled out, as above. Troponin 0.64. Mild 1V CAD on LHC (40% mLAD). NIMP EF 45% on TTE. Right radial access site healing well. No bleeding or hematoma. Mild ecchymosis. Restrictions discussed. Continue ASA, Statin, BB. Discussed with Dr. Stauffer. Given troponin elevation, recommend DAPT (ASA and Plavix) x 1 month. (3) Diabetes Current Visit: Yes Status: Acute The assessment and plan as outlined above was discussed with the patient and/or family members who expressed understanding and agreement. All questions were answered. Qualifiers: Diabetes mellitus type: type 2 Diabetes mellitus extermination supervisor insulin use: without extermination supervisor use Diabetes mellitus complication status: without complication Qualified Code(s): E11.9 - Type 2 diabetes mellitus without complications Discussion w patient/family: The assessment and plan as outlined above was discussed with the patient and/or family members who expressed understanding and agreement. All questions were answered. Thank you for involving us in the care of your patient. Please call with any questions. Subjective Principal diagnosis: CMP Interval history: Feels well overnight without chest/jaw/arm discomfort, dyspnea or palpitations. Objective Vital Signs, Last 4 Hours Temp Pulse Resp BP Pulse Ox 07/31/18 07:28 98.1 F 97 16 103/72 94 General: Conversant HEENT: Atraumatic Neck: No JVD Cardiac: Reg Rate and Rhythm Lungs: Normal Breath Sounds Neuro: Alert and responsive Abdomen: Soft Skin: No rashes noted on visualized skin Extremities: No Edema Results 07/30/18 05:29 07/30/18 05:29 Consult Discharge Plan - Plan Referrals: Grover Zamorano CNP [Primary Care Provider] -
[2018-07-31] MEDS ORDERED: Metoprolol XL (24 HR) Succ 50 MG TAB.ER.24H PO SCH (09:00)
--- NOTE | 2018-07-31 10:18 | Electrocardiograph Report ---
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
--- NOTE | 2018-07-31 10:24 | Electrocardiograph Report ---
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
--- NOTE | 2018-07-31 10:26 | Discharge Summary ---
Date of Encounter: 07/31/18 Time of Encounter: 10:30 - Discharge Diagnosis (1) Takotsubo cardiomyopathy Priority: Primary Status: Acute Comments: ef 40-45%. ruled out STEMI with cath. mild trop bump and moderate LAD disease - aspirin and plavix - Hospital Course Hospital course: Ms. Mccord is a 48 year old female - Time Spent with Patient Total time spent providing and/or coordinating discharge services: Greater than 30 minutes - Discharge Medications Prescriptions: New Aspirin 81 mg PO DAILY tab.chew Atorvastatin [Lipitor] 40 mg PO HS 30 Days #30 tablet Clopidogrel [Plavix] 75 mg PO DAILY 30 Days #30 tablet Metoprolol XL (24 HR) Succ [Toprol Xl] 50 mg PO DAILY 30 Days #30 tab.er.24h Continue Metformin HCl [Fortamet] 500 mg PO DAILY Lisinopril 2.5 mg PO HS 30 Days #30 tablet Home Medications: Metformin HCl [Fortamet] 500 mg PO DAILY 07/29/18 [History] Aspirin 81 mg PO DAILY tab.chew 07/31/18 [Rx] Atorvastatin [Lipitor] 40 mg PO HS 30 Days #30 tablet 07/31/18 [Rx] Clopidogrel [Plavix] 75 mg PO DAILY 30 Days #30 tablet 07/31/18 [Rx] Lisinopril 2.5 mg PO HS 30 Days #30 tablet 07/31/18 [Rx] Metoprolol XL (24 HR) Succ [Toprol Xl] 50 mg PO DAILY 30 Days #30 tab.er.24h 07/31/18 [Rx] Allergies/Adverse Reactions: Allergy/AdvReac Type Severity Reaction Status Date / Time Sulfa (Sulfonamide Allergy Hives Verified 07/29/18 21:28 Antibiotics) Date of admission: 07/29/18 22:58 Primary care physician: Grover Zamorano CNP Consults: 07/29/18 22:12 Consult to Cardiac Rehabilitation-Phase1 [CONS] Routine Comment: Reason for Consult: AMI Call Completed: Yes Consult to Nurse Navigator [CONS] Routine Comment: Discharging clinician: Cristobal Stauffer Anticipated date of discharge: 07/31/18 Physical Examination Vital Signs, Last 4 Hours Temp Pulse Resp BP Pulse Ox 07/31/18 07:28 98.1 F 97 16 103/72 94 General: Conversant HEENT: Atraumatic Neck: No JVD Cardiac: Reg Rate and Rhythm Lungs: Normal Breath Sounds Neuro: Alert and responsive Abdomen: Soft Skin: No rashes noted on visualized skin Musculoskeletal: No Chest Wall Tenderness Extremities: No Edema - Patient Status Disposition: Home, Self-Care Condition: Good Functional capacity at discharge: independent ambulation Overall status at discharge: patient is back to baseline - Discharge Instructions Follow Up With: Grover Zamorano [employer] [Primary Care Provider] - - Diet and Activity Activity: increase activity as tolerated Diet: advance to your usual diet
--- NOTE | 2018-07-31 11:01 | Electrocardiograph Report ---
[place] [id number] Test Date: 2018-07-29 Pat Name: Stephania Mccord Department: [id number] Room: 2NE26 Gender: F Dado Operator: : [id number] Requested By: Debbi Moreno Order Number: [id number] Reading MD: Mica Myers Measurements Intervals [place] Rate: 96 P: 53 IA: 156 QRS: 66 QRSD: 92 T: 64 QT: 385 QTc: 487 Interpretive Statements Sinus rhythm ST elev, probable normal early repol pattern Borderline prolonged QT interval Electronically Signed On 07-31-2018 11:00:00 EDT by Mica Myers
== END 2018-07-31 11:40 | disposition home or self-care (01) | DRG 287 ==
LOC: EMEROOARM 19:51 → 2NENU 19:51 → OBSVTOIN 22:58
PROVIDERS: ADMIT Emergency Medicine; ATTEND Internal Medicine Cardiovascular Disease